=== PATIENT | female | born 1960 | race Caucasian/White ===

== ENCOUNTER 2020-08-15 09:05 | Emergency (ER) | payer SELFPAY ==
[2020-08-15] MEDS ORDERED: Famotidine 20 MG TAB ONE (09:31)
[2020-08-15] MEDS ORDERED: diphenhydrAMINE 25 MG CAP ONE (09:31)
[2020-08-15] MEDS ORDERED: predniSONE 20 MG TAB ONE (09:31)
== END 2020-08-15 10:21 | disposition home or self-care (01) ==
LOC: MADERS 09:05
DX: T63.481A Toxic effect of venom of other arthropod, accidental (unintentional), initial encounter (principal); R21 Rash and other nonspecific skin eruption; I10 Essential (primary) hypertension; F17.210 Nicotine dependence, cigarettes, uncomplicated; Z79.899 Other long term (current) drug therapy
CPT/HCPCS: 99283; J7512; Q0163